=== PATIENT | female | born 1980 | race Caucasian/White ===

== ENCOUNTER 2018-05-28 08:19 | Outpatient (CLI) | payer OTHER ==
--- NOTE | 2018-05-28 16:34 | MMO ---
BILATERAL SCREENING MAMMOGRAM: Date: 05/28/18 INDICATION: Baseline exam. COMPARISON: None. FINDINGS: Interpretation of this exam was assisted with computer-aided detection. The breast parenchyma is heterogeneously dense. There are benign-appearing calcifications bilaterally. No suspicious mass, cluster of microcalcifications, or area of architectural distortion is evident. IMPRESSION: BIRADS 2: Benign Finding(s) Recommend routine annual mammographic screening. POS: JERI
== END 2018-05-28 08:20 | disposition home or self-care (01) ==
LOC: SCSMAMMO 08:19
PROVIDERS: ATTEND Family Medicine
DX: Z12.31 Encounter for screening mammogram for malignant neoplasm of breast (principal)
CPT/HCPCS: 77067

== ENCOUNTER 2019-06-01 13:37 | Outpatient (CLI) | payer OTHER ==
--- NOTE | 2019-06-01 14:52 | MMO ---
Left Breast MAMMO Unilat Diag DDI LT+CONNIE. CLINICAL HISTORY: Patient is 39 years old and is seen for diagnostic exam. The patient has the following family history of breast cancer: maternal grandmother, at age 65. The patient has no personal history of cancer. VIEWS: The views performed were: left craniocaudal spot compression with tomosynthesis; left mediolateral oblique spot compression with tomosynthesis; and left mediolateral with tomosynthesis. FILMS COMPARED: The present examination has been compared to prior imaging studies performed at [facility] on 05/19/2019, at [facility] on 05/28/2018, and at [facility] on 06/01/2019. This study has been interpreted with the assistance of computer-aided detection. MAMMOGRAM FINDINGS: The breast is heterogeneously dense, which could obscure a lesion on mammography. The nodule in the left posterior breast at 2:00 position is less prominent on addl images and likely corresponds to a lymph node on US. IMPRESSION: FINDING IN THE LEFT BREAST IS PROBABLY BENIGN. FOLLOW-UP IN 6 MONTHS IS RECOMMENDED. THE RESULTS OF THIS EXAM WERE SENT TO THE PATIENT. ACR BI-RADS Category 3 - Probably benign finding - short interval follow-up suggested. [facility] will notify the patient of the need for additional imaging services. MAMMOGRAPHY NOTE: 1. A negative mammogram report should not delay a biopsy if a dominant of clinically suspicious mass is present. 2. Approximately 10% to 15% of breast cancers are not detected by mammography. 3. Adenosis and dense breasts may obscure an underlying neoplasm. Reported by: YUDITH ASHRAF MD Electonically Signed: [id number]
--- NOTE | 2019-06-01 15:05 | ULT ---
LEFT BREAST ULTRASOUND: HISTORY: Abnormal mammogram. CORRELATION: Mammograms from today and from 05/19/2019. FINDINGS: Sonographic evaluation of the deep upper outer breasts demonstrates a well circumscribed, nonshadowin g, hypoechoic nodule with an echogenic hilum (without definite flow), about 6 cm from the nipple, marco a suring about 10 x 9 x 4 mm and likely represents a lymph node. IMPRESSION: BI-RADS category 3 - probably benign findings. Follow-up left diagnostic mammogram and ultrasound is recommended in six months. POS: OFF
== END 2019-06-01 13:38 | disposition home or self-care (01) ==
LOC: BICMAMMO 13:37
PROVIDERS: ATTEND Obstetrics & Gynecology
DX: R92.2 Inconclusive mammogram (principal); Z80.3 Family history of malignant neoplasm of breast
CPT/HCPCS: G0279

== ENCOUNTER 2019-12-18 10:29 | Emergency (ER) | payer OTHER ==
--- NOTE | 2019-12-18 11:30 | ULT ---
RIGHT LOWER EXTREMITY VENOUS DUPLEX EXAM: Date: 12/18/2019 INDICATION: Right lower extremity pain and edema. Redness. FINDINGS: Deep veins of right lower extremity evaluated with ultrasound and Doppler. Color Doppler with spectra l analysis and compression studies performed. The deep veins of the right lower extremity show normal blood flow and compression. No evidence of de ep venous thrombosis. Technologist notes a thrombus within a superficial vein in the posterolateral lower extremity at site of concern. This would indicate superficial vein phlebitis and thrombosis. IMPRESSION: 1. No evidence of deep vein thrombosis. 2. There is evidence of superficial phlebitis and thrombosis in the veins below the knee on the righ t at site of tenderness and concern. POS: AGW
== END 2019-12-18 12:03 | disposition home or self-care (01) ==
LOC: ERS 10:29
DX: O99.413 Diseases of the circulatory system complicating pregnancy, third trimester (principal); I80.01 Phlebitis and thrombophlebitis of superficial vessels of right lower extremity; Z3A.33 33 weeks gestation of pregnancy

== ENCOUNTER 2020-02-06 09:37 | Outpatient (CLI) | payer OTHER ==
[2020-02-07 12:30] LABS: SARS-CoV-2 MS2 Positive; SARS-CoV-2 N Gene Negative; SARS-CoV-2 S Gene Negative; SARS-CoV-2 by NAA Not Detected (NotDetected); SARS-CoV-2 orf1ab Negative
== END 2020-02-06 09:38 | disposition home or self-care (01) ==
LOC: LABSCS 09:37
PROVIDERS: ATTEND Obstetrics & Gynecology
DX: Z01.812 Encounter for preprocedural laboratory examination (principal); Z11.59 Encounter for screening for other viral diseases
CPT/HCPCS: 87635; U0003

== ENCOUNTER 2020-02-09 05:30 | Inpatient (IN) | payer OTHER ==
[2020-02-09] MEDS ORDERED: HYDROcodone/Acetaminophen 5/325 mg Tablet PO PRN ×3 (08:03→18:48)
[2020-02-09] MEDS ORDERED: Lidocaine 1% (PF) 30 ML VIAL SC PRN (08:03)
[2020-02-09] MEDS ORDERED: NS / Oxytocin 40 units/1000ml 1,000 ML IV PRN (08:03)
[2020-02-09] MEDS ORDERED: Ibuprofen 800 MG TAB PO PRN (08:03)
--- NOTE | 2020-02-09 08:06 | PDOC.LDHP ---
Labor and Delivery H&P Chief complaint: scheduled induction HPI: Pt is a 39yo scheduled for IOL @ 40 weeks. Current gestational age (weeks): 40 Due date: 02/08/20 Grav: 3 Para: 2 Current complications: none Abnormal US findings: No Current medications: pre-dirk vitamins Previous surgical history: none Social history: none - Physical Exam General: NAD Heart: RRR Lungs: CTAB Abdomen: gravid Extremeties: pitting edema - Vaginal Exam cm dilated: 2 Effacement: 50% Station: -2 - OB Labs Blood type: A RH: positive Antibody Screen: negative HIV: negative RPR: negative HEPSAg: negative 1 hour GCT: negative GBS: negative Urine drug screen: negative Rubella: immune - Assessment L&D Assessment: medically indicated induction (40 weeks and AMA) - Plan Plan: admit to L&D, cervical ripening, labor augmentation if indicated, informed consent obtained, anesthesia consult for pain management
[2020-02-09] MEDS ORDERED: NS w/ Oxytocin 10 units 500 ML IV SCH ×2 (08:15)
[2020-02-09] MEDS ORDERED: Ondansetron PF 4 MG/2 ML Vial IVP PRN ×2 (09:52→12:56)
[2020-02-09] MEDS ORDERED: Promethazine HCl 25 MG/ML VIAL IM PRN ×2 (09:52→12:56)
[2020-02-09] MEDS ORDERED: hydrALAZINE 20 MG/ML VIAL SLOW IVP PRN ×2 (09:52→18:48)
[2020-02-09] MEDS ORDERED: Butorphanol Tartrate 1 MG/ML VIAL SLOW IVP PRN (09:52)
[2020-02-09] MEDS ORDERED: Bupivacaine 0.25% HCL 30 ML VIAL ONE (10:14)
[2020-02-09] MEDS ORDERED: EPHEDRINE 25 MG/5 ML SYRINGE ONE (10:14)
[2020-02-09] MEDS: Lactated Ringer's 1,000 ML IV SCH ×2 (10:31→15:33)
[2020-02-09 10:42] VITALS: BMI 25.2
[2020-02-09 10:57] LABS: Hemoglobin 13.8 g/dL (12.0-16.0); Mean Corpuscular HGB CONC 33.5 g/dL (32.0-36.0); Mean Corpuscular Hemoglobin 34.1 pg (27.0-31.0); Platelet Count 169 thou/uL (130-400); RBC Distribution Width 11.7 % (11.5-14.5); Red Blood Cell (RBC) Count 4.03 mill/uL (4.20-5.40); White Blood Cell (WBC) Count 5.4 thou/uL (4.8-10.8)
[2020-02-09] MEDS ORDERED: Fentanyl 4 mcg/Bup 0.1% Cadd 100 ML ONE (11:31)
[2020-02-09 11:33] LABS: HBSAg Index 0.15 S/CO (0-0.99); Hep B Surf Ag Non-Reactive S/CO (NonReactive); Syphilis Antibody Nonreactive (Nonreactive); Syphilis Antibody Index 0.08 S/CO (<1.00 Non-Reactive)
[2020-02-09] MEDS ORDERED: NS / Oxytocin 40 units/1000ml 1,000 ML ONE (11:43)
[2020-02-09] MEDS ORDERED: Lidocaine 1% (PF) 30 ML VIAL ONE (11:43)
[2020-02-09] MEDS ORDERED: Acetaminophen 325 MG TAB PO PRN (12:56)
[2020-02-09] MEDS ORDERED: diphenhydrAMINE 50 MG/ML VIAL IVP PRN (12:56)
[2020-02-09] MEDS ORDERED: Lactated Ringer's 500 ML IV PRN (12:56)
[2020-02-09] MEDS ORDERED: Naloxone HCl 0.4 mg/ml Vial IVP PRN ×2 (12:56)
[2020-02-09] MEDS ORDERED: Fentanyl 4 mcg/Bupivacaine 0.1% Cassette 100 ML EPIDURAL SCH (13:00)
[2020-02-09] MEDS ORDERED: Communication Order-Pharmacy FS SCH (13:00)
[2020-02-09] MEDS: EPHEDRINE 25 MG/5 ML SYRINGE SLOW IVP PRN ×2 (14:40→14:43)
--- NOTE | 2020-02-09 16:48 | PDOC.OPDEL ---
OB Operative/Delivery Note Delivery Dr/Surgeon: Servando Pre-Delivery Diagnosis: medically indicated induction (40 weeks, AMA) Procedure/Post Delivery Dx: spontaneous vaginal delivery Weeks gestation: 40 Anesthesia: epidural - Findings A Sex: female - 1 min: 8 - 5 min: 9 - Additional Findings/Plan Placenta delivered: spontaneous Repaired Obstetrical Laceration: 2nd degree Estimated blood loss: 300ml Post delivery plan: routine recovery
[2020-02-09] MEDS ORDERED: Lanolin Ointment 7 GM TUBE TOP PRN (18:48)
[2020-02-09] MEDS ORDERED: NS / Oxytocin 40 units/1000ml 1,000 ML IV SCH (18:48)
[2020-02-09] MEDS ORDERED: Benzocaine-Menthol 82.5 ML CAN TOP PRN (18:48)
[2020-02-09] MEDS ORDERED: Bisacodyl 10 MG SUPP PR PRN (18:48)
[2020-02-09] MEDS ORDERED: Preparation H Ointment 28 GM TUBE PR PRN (18:48)
[2020-02-09] MEDS ORDERED: Milk Of Magnesia 30 ML UDCUP PO PRN (18:48)
[2020-02-09] MEDS ORDERED: diphenhydrAMINE 25 MG CAP PO PRN (18:48)
[2020-02-09] MEDS ORDERED: Ferrous Sulfate 325 MG TAB PO SCH (19:15)
[2020-02-09] MEDS: Ibuprofen 800 MG TAB PO SCH (21:53)
[2020-02-09] MEDS: Docusate Calcium (SURFAK) 240 MG CAP PO SCH (21:54)
[2020-02-10] MEDS: HYDROcodone/Acetaminophen 5/325 mg Tablet PO PRN ×2 (02:23→06:42)
[2020-02-10] MEDS: Ferrous Sulfate 325 MG TAB PO SCH ×2 (07:58→17:27)
--- NOTE | 2020-02-10 07:59 | PDOC.PP ---
Post Progress Note Post Day #: 1 Subjective: doing well, no concerns, minimal lochia, breast feeding well PO intake tolerated: yes Flatus: yes Ambulation: yes Vital Signs (12 hours) Temp Pulse Resp BP Pulse Ox 02/10/20 04:55 97.8 F 56 L 14 106/53 L 02/09/20 22:50 98.0 F 58 L 17 101/58 L 02/09/20 21:45 97.8 F 62 16 98/65 02/09/20 20:30 98.2 F 72 17 102/64 100 Weight Weight 171 lb - Physical Examination General: NAD Respiratory: non-labored breathing Abdominal: no distention Neurological: no gross focal deficits Psychiatric: A&Ox3, normal affect Result Diagrams: 02/09/20 10:45 Additional Labs: Post Labs Blood Type A POSITIVE 02/09/20 12:17 Hep Bs Antigen Non-Reactive S/CO (NonReactive) 02/09/20 10:45 (1) Vaginal delivery Code(s): O80 - ENCOUNTER FOR FULL-TERM UNCOMPLICATED DELIVERY Status: Acute - Assessment/Plan PPD1 doing well, plan for DC when baby DC today.
[2020-02-10] MEDS ORDERED: Adacel (T-DAP) 0.5 ML SYRINGE IM ONE (09:00)
[2020-02-10] MEDS: Docusate Calcium (SURFAK) 240 MG CAP PO SCH ×2 (09:53→22:06)
[2020-02-10] MEDS: Prenatal Vitamin 1 TAB PO SCH (09:53)
[2020-02-10] MEDS: Ibuprofen 800 MG TAB PO SCH ×2 (09:53→17:27)
[2020-02-11] MEDS: Ibuprofen 800 MG TAB PO SCH ×2 (00:04→09:16)
[2020-02-11 08:23] VITALS: BP 104/64; TEMP 98
[2020-02-11] MEDS: Ferrous Sulfate 325 MG TAB PO SCH (09:16)
[2020-02-11] MEDS: Docusate Calcium (SURFAK) 240 MG CAP PO SCH (09:16)
[2020-02-11] MEDS: Prenatal Vitamin 1 TAB PO SCH (09:16)
== END 2020-02-11 13:15 | disposition home or self-care (01) | DRG 807 ==
LOC: L&D 09:41 → 3SW 21:27
PROVIDERS: ADMIT Obstetrics & Gynecology; ATTEND Obstetrics & Gynecology
PROC: 10E0XZZ Delivery of Products of Conception, External Approach (ICD-10-PCS; principal; 2020-02-09)
PROC: 0KQM0ZZ Repair Perineum Muscle, Open Approach (ICD-10-PCS; 2020-02-09)
PROC: 3E033VJ Introduction of Other Hormone into Peripheral Vein, Percutaneous Approach (ICD-10-PCS; 2020-02-09)
DX: O70.1 Second degree perineal laceration during delivery (principal); Z37.0 Single live birth; Z3A.40 40 weeks gestation of pregnancy
CPT/HCPCS: 36415; 51702; 85027; 86780; 86850; 86900; 86901; 87340; J2001; J2590; S0020